=== PATIENT | female | born 1955 | race Caucasian/White ===

== ENCOUNTER 2017-02-10 20:59 | Emergency (ER) | payer OTHER ==
[~2017-02-10] VITALS: Ht 167.6 cm; Wt 59.1 kg
[~2017-02-10 20:59] MED LIST: ADDERALL10 MG PO; DESYREL100 MG PO; LEVOTHYROXINE100 MCG PO; PROZAC20 MG PO; RISPERDAL1 MG PO
[2017-02-10 21:17] VITALS: BP 131/77
[2017-02-10] MEDS ORDERED: NAPROSYN500 MG PO (22:07)
== END 2017-02-10 22:52 | disposition home or self-care (01) ==
LOC: EME 20:59
PROC: 2W3RX1Z Immobilization of Left Lower Leg using Splint (ICD-10-PCS; principal; 2017-02-10)
DX: S82.62XA Displaced fracture of lateral malleolus of left fibula, initial encounter for closed fracture (principal); X58.XXXA Exposure to other specified factors, initial encounter
CPT/HCPCS: 73610; 99281; 99284